=== PATIENT | female | born 1940 | race Caucasian/White ===

== ENCOUNTER → 2018-06-06 | Outpatient (REF) | payer MEDICARE ==
[~2018-06-06] MED LIST: ATIVAN0.5 MG OR; CIPROFLOXACN500 MG PO; METOPROLOL SUC100 MG; PHENERGAN SUPP RE; SPIRIVA PO; TESSALON200 MG PO; VENTOLIN HFA; WARFARIN5 MG PO
[2018-06-06 15:29] LABS: INTERNATIONAL NORMALIZED RATIO 3.6 RATIO (0.7-1.3); PROTHROMBIN TIME 37.4 SECONDS (9.0-12.5)
== END | disposition home or self-care (01) ==
LOC: LAB 14:57
DX: Z95.2 Presence of prosthetic heart valve (principal)